=== PATIENT | male | born 1965 | race Two or more races ===

== ENCOUNTER 2019-07-14 04:24 | Emergency (ER) | payer MEDICARE, OTHER ==
[~2019-07-14] VITALS: Ht 182.9 cm; Wt 77.1 kg
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
--- NOTE | 2019-07-14 04:37 | NUR ---
[employer] AT THE BED SIDE MAKING REPORT
[2019-07-14] MEDS ORDERED: MORPHINE SULFATE INJ 4 MG/ML DISP.SYRIN ONE (04:49)
[2019-07-14] MEDS ORDERED: ONDANSETRON HCL/PF 4 MG/2 ML VIAL ONE (04:49)
--- NOTE | 2019-07-14 04:54 | NUR ---
PT TRANSPORTED TO RADIOLOGY FOR CT.
[2019-07-14] MEDS ORDERED: MORPHINE SULFATE INJ 2 MG/ML DISP.SYRIN IV ONE (05:00)
[2019-07-14] MEDS ORDERED: ONDANSETRON HCL/PF - ER 4 MG/2 ML VIAL IV ONE (05:00)
[2019-07-14] MEDS ORDERED: PIPERACILLIN /TAZOBACTAM 3.375 G VIAL IV ONE (05:27)
[2019-07-14] MEDS ORDERED: TDAP [DIPH/PERTUSSIS/TET] 0.5 ML VIAL IM ONE ×2 (05:28→05:30)
[2019-07-14] MEDS ORDERED: PIPERACILLIN /TAZOBACTAM 3.375 G in IV D5W 50 ML IV ONE (05:30)
--- NOTE | 2019-07-14 05:55 | NUR ---
MADE AWARE OF PT'S BP 190/115. ORDERS RECEIVED
[2019-07-14] MEDS ORDERED: CLONIDINE HCL 0.1 MG TABLET PO ONE (06:00)
[2019-07-14] MEDS ORDERED: CLONIDINE HCL 0.1 MG TABLET ONE (06:02)
--- NOTE | 2019-07-14 07:15 | NUR ---
REPORT GIVEN TO ABHI SANZ FOR [facility]
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
--- NOTE | 2019-07-14 08:59 | NUR ---
IV LINE ESTABLISHED, BLOOD DRAWN AND SENT TO LAB. PATIENT GIVEN A URINAL FOR URINE SAMPLE.
[2019-07-14 09:05] LABS: BASOPHILS # (AUTO) 0.1 /CMM (0.0-0.2); BASOPHILS % (AUTO) 0.7 % (0.0-2.0); EOSINOPHILS % (AUTO) 0.6 % (0.0-6.0); HEMATOCRIT 45 % (39-51); LYMPHOCYTES # (AUTO) 2.2 /CMM (0.8-4.8); LYMPHOCYTES % (AUTO) 25.4 % (20.0-44.0); MEAN CORPUSCULAR HGB CONC 33 g/dl (31.0-36.0); MEAN CORPUSCULAR VOLUME 92 fL (80-96); MONOCYTES # (AUTO) 0.7 /CMM (0.1-1.30); MONOCYTES % (AUTO) 8.5 % (2.0-12.0); NEUTROPHILS # (AUTO) 5.6 /CMM (1.8-8.9); NEUTROPHILS % (AUTO) 64.8 % (43.0-81.0); PLATELET COUNT (AUTO) 263 /CMM (150-450); RED BLOOD CELL COUNT(AUTO) 4.87 MIL/uL (4.5-6.0); WHITE BLOOD COUNT (AUTO) 8.7 K/uL (4.3-11.0)
[2019-07-14 09:20] LABS: CALCIUM, SERUM 9.2 mg/dL (8.5-10.1); CARBON DIOXIDE 31 mmol/L (21-32); CHLORIDE 102 mmol/L (98-107); GLUCOSE 162 mg/dL (74-106); POTASSIUM 4.6 mmol/L (3.5-5.1); SODIUM SERUM 139 mmol/L (136-145); UREA NITROGEN, BLOOD 12 mg/dL (7-18)
[2019-07-14 09:25] LABS: ALANINE AMINOTRANSFERASE 25 U/L (12-78); ALBUMIN 3.4 g/dL (3.4-5.0); ALKALINE PHOSPHATASE 79 U/L (46-116); ASPARTATE AMINOTRANSFERASE 18 U/L (15-37); BILIRUBIN,DIRECT 0.1 mg/dL (0.0-0.2); BILIRUBIN,TOTAL 0.3 mg/dL (0.2-1.0); TOTAL PROTEIN, SERUM 7.1 g/dL (6.4-8.2)
--- NOTE | 2019-07-14 10:15 | NUR ---
CALLED [facility] [phone] ONLY PEDS AND OB AVAILABLE BILL.
--- NOTE | 2019-07-14 10:41 | NUR ---
CALLED [facility] [phone] ANNIE FAXED FACESHEET AND SUMMER REPORT [phone]
--- NOTE | 2019-07-14 10:52 | NUR ---
CALLED [facility]... THEY ARE ALSO SATURATED
--- NOTE | 2019-07-14 12:33 | NUR ---
[facility] SATURATED
--- NOTE | 2019-07-14 12:50 | NUR ---
PATIENT RESTING, NO DISTRESS NOTED.
--- NOTE | 2019-07-14 13:06 | NUR ---
paged Dr. Frazier for consult
--- NOTE | 2019-07-14 13:15 | NUR ---
[facility] MAIN , NO OPTHAMOLOGY SERVICES, REFER CASES TO [facility]
--- NOTE | 2019-07-14 13:23 | NUR ---
[facility]
--- NOTE | 2019-07-14 14:30 | NUR ---
US TECH AT BEDSIDE.
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
--- NOTE | 2019-07-14 16:00 | NUR ---
PATIENT AMBULATORY WITH STEADY GAIT. IV removed. Catheter intact and site benign. Pressure and 4x4 applied to site. No bleeding noted. Seen by [facility] social service manager. Patient given written and verbal discharge instructions. Patient verbalizes understanding of instructions. Patient is ambulatory with steady gait. Refuses offer of jail placement. Patient given list of available shelters in surrounding area.
[2019-07-14 16:01] VITALS: BP 148/99
== END 2019-07-14 16:03 | disposition home or self-care (01) ==
LOC: ER 04:25
DX: S05.8X1A Other injuries of right eye and orbit, initial encounter (principal); I10 Essential (primary) hypertension; R41.0 Disorientation, unspecified; Z59.0 Homelessness; Z98.890 Other specified postprocedural states; Y08.89XA Assault by other specified means, initial encounter; Y93.89 Activity, other specified; Y92.89 Other specified places as the place of occurrence of the external cause; Y99.8 Other external cause status
CPT/HCPCS: 36415; 70450; 70480; 71045; 76536; 80048; 80076; 84484; 85025; 85730; 90471; 90715; 93005; 96365; 96375; 99285; J2270; J2405; J2543; J7060